=== PATIENT | female | born 1965 | race Caucasian/White ===

== ENCOUNTER 2023-03-31 12:00 | Emergency (ER) | payer MEDICARE, BC ==
[2023-03-31] MEDS ORDERED: Aspirin 81 MG Tab.Chew PO ONE (12:11)
[2023-03-31] MEDS ORDERED: Nitroglycerin 0.4 MG Tab.SL SL PRN (12:11)
[2023-03-31] MEDS ORDERED: Morphine 4 MG/ML Syringe IVPUSH ONE ×2 (12:11→13:16)
[2023-03-31 12:27] LABS: BASOPHILS ABSOLUTE AUTO 0.04 K/uL (0.00-0.20); BASOPHILS PERCENT AUTO 0.6 % (0.0-1.0); EOSINOPHILS ABSOLUTE AUTO 0.08 K/uL (0.00-0.45); EOSINOPHILS PERCENT AUTO 1.3 % (0.0-6.0); HEMATOCRIT 46.6 % (37.0-47.0); HEMOGLOBIN 15.7 g/dL (12.0-16.0); IMMATURE GRAN ABSOLUTE AUTO 0.02 K/uL (0.00-0.05); IMMATURE GRAN PERCENT AUTO 0.3 % (0.0-0.4); LYMPHOCYTES ABSOLUTE AUTO 2.01 K/uL (1.00-4.80); LYMPHOCYTES PERCENT AUTO 31.5 % (24.0-44.0); MEAN CORPUSCULAR HEMOGLOBIN 31.2 pg (28.0-32.0); MEAN CORPUSCULAR HGB CONC 33.7 g/dL (32.0-36.0); MEAN CORPUSCULAR VOLUME 92.5 fL (83.0-99.0); MEAN PLATELET VOLUME 11.1 fL (9.4-12.3); MONOCYTES ABSOLUTE AUTO 0.51 K/uL (0.00-0.80); NEUTROPHILS ABSOLUTE AUTO 3.73 K/uL (1.80-7.70); NEUTROPHILS PERCENT AUTO 58.3 % (41.0-71.0); PLATELET COUNT,PLT 209 K/uL (150-400); RED BLOOD CELL COUNT 5.04 M/uL (4.10-5.30); WHITE BLOOD CELL COUNT,WBC 6.39 K/uL (3.9-11.3)
[2023-03-31 12:38] LABS: INR 0.96 (0.86-1.11)
[2023-03-31 12:56] LABS: BILIRUBIN TOTAL 0.7 mg/dL (0.2-1.0); CALCIUM 9.2 mg/dL (8.5-10.1); CARBON DIOXIDE,CO2 23.7 mmol/L (21.0-32.0); CREATININE 0.8 mg/dL (0.6-1.0); EST CRCL DRUG DOSING (CG) 72.63 mL/min; MAGNESIUM 2.1 mg/dL (1.8-2.4); POTASSIUM,K 4.3 mmol/L (3.5-5.1); PROTEIN TOTAL,TP 8.2 g/dL (6.4-8.2)
[2023-03-31] MEDS ORDERED: Ondansetron 4 MG/2 ML SDV IVPUSH ONE (13:07)
== END 2023-03-31 13:58 | disposition home or self-care (01) ==
LOC: MW.ED 12:00
DX: R07.9 Chest pain, unspecified (principal); Z88.0 Allergy status to penicillin
CPT/HCPCS: 36415; 71045; 80053; 83735; 83880; 84484; 85025; 85610; 85730; 93005; 96374; 96375; 96376; 99285; A9270; J2270; J2405; 93010; 99284

== ENCOUNTER 2023-05-25 09:59 | Emergency (ER) | payer MEDICARE, BC ==
[2023-05-25] MEDS ORDERED: Aspirin 81 MG Tab.Chew PO ONE (10:08)
[2023-05-25 10:21] LABS: BASOPHILS ABSOLUTE AUTO 0.01 K/uL (0.00-0.20); BASOPHILS PERCENT AUTO 0.1 % (0.0-1.0); IMMATURE GRAN ABSOLUTE AUTO 0.06 K/uL (0.00-0.05); IMMATURE GRAN PERCENT AUTO 0.7 % (0.0-0.4); LYMPHOCYTES ABSOLUTE AUTO 1.08 K/uL (1.00-4.80); LYMPHOCYTES PERCENT AUTO 12.3 % (24.0-44.0); MEAN CORPUSCULAR HEMOGLOBIN 30.9 pg (28.0-32.0); MEAN CORPUSCULAR HGB CONC 34.1 g/dL (32.0-36.0); MEAN CORPUSCULAR VOLUME 90.7 fL (83.0-99.0); MEAN PLATELET VOLUME 10.6 fL (9.4-12.3); MONOCYTES ABSOLUTE AUTO 0.15 K/uL (0.00-0.80); MONOCYTES PERCENT AUTO 1.7 % (0.0-8.0); NEUTROPHILS ABSOLUTE AUTO 7.48 K/uL (1.80-7.70); NEUTROPHILS PERCENT AUTO 85.2 % (41.0-71.0); PLATELET COUNT,PLT 251 K/uL (150-400); RED BLOOD CELL COUNT 4.85 M/uL (4.10-5.30); WHITE BLOOD CELL COUNT,WBC 8.78 K/uL (3.9-11.3)
[2023-05-25] MEDS ORDERED: Morphine 4 MG/ML Syringe IVPUSH ONE (10:22)
[2023-05-25] MEDS ORDERED: Ondansetron 4 MG/2 ML SDV IVPUSH ONE (10:23)
[2023-05-25] MEDS ORDERED: LORazepam 1 MG Tab PO ONE (10:26)
[2023-05-25 10:27] LABS: INR 0.96 (0.86-1.11); PTT,PARTIAL THROMBOPLSTIN TIME 27.1 SEC (23.9-30.7)
[2023-05-25 10:43] LABS: A/G RATIO 0.9 (0.9-1.6); ALBUMIN 3.7 g/dL (3.4-5.0); BILIRUBIN TOTAL 0.3 mg/dL (0.2-1.0); CALCIUM 9.7 mg/dL (8.5-10.1); CARBON DIOXIDE,CO2 22.3 mmol/L (21.0-32.0); EST CRCL DRUG DOSING (CG) 58.11 mL/min; MAGNESIUM 1.8 mg/dL (1.8-2.4); POTASSIUM,K 3.9 mmol/L (3.5-5.1); PROTEIN TOTAL,TP 7.9 g/dL (6.4-8.2)
== END 2023-05-25 11:48 | disposition home or self-care (01) ==
LOC: MW.ED 09:59
DX: R07.9 Chest pain, unspecified (principal); I10 Essential (primary) hypertension; I25.810 Atherosclerosis of coronary artery bypass graft(s) without angina pectoris; Z86.73 Personal history of transient ischemic attack (TIA), and cerebral infarction without residual deficits; Z95.5 Presence of coronary angioplasty implant and graft; Z79.82 Long term (current) use of aspirin; Z79.899 Other long term (current) drug therapy; Z88.0 Allergy status to penicillin; Z91.041 Radiographic dye allergy status
CPT/HCPCS: 36415; 70450; 71045; 80053; 83735; 84484; 85025; 85610; 85730; 93005; 96374; 96375; 99285; A9270; J2270; J2405; 93010; 99284

== ENCOUNTER 2024-01-09 22:09 | Observation (INO) | payer MEDICARE, OTHER ==
[2024-01-09 22:34] LABS: BASOPHILS ABSOLUTE AUTO 0.04 K/uL (0.00-0.20); BASOPHILS PERCENT AUTO 0.6 % (0.0-1.0); EOSINOPHILS ABSOLUTE AUTO 0.14 K/uL (0.00-0.45); EOSINOPHILS PERCENT AUTO 1.9 % (0.0-6.0); HEMATOCRIT 42.6 % (37.0-47.0); HEMOGLOBIN 14.2 g/dL (12.0-16.0); IMMATURE GRAN ABSOLUTE AUTO 0.03 K/uL (0.00-0.05); IMMATURE GRAN PERCENT AUTO 0.4 % (0.0-0.4); LYMPHOCYTES ABSOLUTE AUTO 3.67 K/uL (1.00-4.80); LYMPHOCYTES PERCENT AUTO 50.8 % (24.0-44.0); MEAN CORPUSCULAR HGB CONC 33.3 g/dL (32.0-36.0); MEAN PLATELET VOLUME 10.4 fL (9.4-12.3); MONOCYTES ABSOLUTE AUTO 0.55 K/uL (0.00-0.80); MONOCYTES PERCENT AUTO 7.6 % (0.0-8.0); NEUTROPHILS PERCENT AUTO 38.7 % (41.0-71.0); PLATELET COUNT,PLT 210 K/uL (150-400); RED BLOOD CELL COUNT 4.58 M/uL (4.10-5.30); WHITE BLOOD CELL COUNT,WBC 7.23 K/uL (3.9-11.3)
[2024-01-09 22:58] LABS: A/G RATIO 1.2 (0.9-1.6); ALBUMIN 3.8 g/dL (3.4-5.0); BILIRUBIN TOTAL 0.4 mg/dL (0.2-1.0); CARBON DIOXIDE,CO2 25.4 mmol/L (21.0-32.0); EST CRCL DRUG DOSING (CG) 58.11 mL/min; MAGNESIUM 1.7 mg/dL (1.8-2.4); POTASSIUM,K 3.9 mmol/L (3.5-5.1); PROTEIN TOTAL,TP 7.1 g/dL (6.4-8.2)
[2024-01-09] MEDS: Sodium Chloride 0.9% 2.5 ML Syringe FLUSH PRN (23:14)
[2024-01-09] MEDS: Ondansetron 4 MG/2 ML SDV IVPUSH ONE (23:14)
[2024-01-09] MEDS: Sodium Chloride 0.9% 10 ML Syringe FLUSH PRN (23:14)
[2024-01-10] MEDS: Morphine 4 MG/ML Syringe IVPUSH ONE (00:05)
[2024-01-10] MEDS: Ondansetron 4 MG/2 ML SDV IVPUSH ONE (00:18)
[2024-01-10] MEDS: Ondansetron 4 MG/2 ML SDV IVPUSH STA (01:39)
[2024-01-10] MEDS: Morphine 2 MG/ML SYRINGE IVPUSH PRN (03:55)
[2024-01-10] MEDS: traZODone 50 MG Tab PO PRN (04:11)
[2024-01-10 05:55] LABS: BASOPHILS ABSOLUTE AUTO 0.04 K/uL (0.00-0.20); BASOPHILS PERCENT AUTO 0.7 % (0.0-1.0); EOSINOPHILS ABSOLUTE AUTO 0.11 K/uL (0.00-0.45); EOSINOPHILS PERCENT AUTO 1.9 % (0.0-6.0); HEMATOCRIT 39.6 % (37.0-47.0); IMMATURE GRAN ABSOLUTE AUTO 0.04 K/uL (0.00-0.05); IMMATURE GRAN PERCENT AUTO 0.7 % (0.0-0.4); LYMPHOCYTES ABSOLUTE AUTO 2.83 K/uL (1.00-4.80); LYMPHOCYTES PERCENT AUTO 49.7 % (24.0-44.0); MEAN CORPUSCULAR HEMOGLOBIN 30.7 pg (28.0-32.0); MEAN CORPUSCULAR HGB CONC 32.8 g/dL (32.0-36.0); MEAN CORPUSCULAR VOLUME 93.6 fL (83.0-99.0); MEAN PLATELET VOLUME 10.4 fL (9.4-12.3); MONOCYTES ABSOLUTE AUTO 0.45 K/uL (0.00-0.80); MONOCYTES PERCENT AUTO 7.9 % (0.0-8.0); NEUTROPHILS ABSOLUTE AUTO 2.22 K/uL (1.80-7.70); NEUTROPHILS PERCENT AUTO 39.1 % (41.0-71.0); PLATELET COUNT,PLT 178 K/uL (150-400); RED BLOOD CELL COUNT 4.23 M/uL (4.10-5.30); WHITE BLOOD CELL COUNT,WBC 5.69 K/uL (3.9-11.3)
[2024-01-10 06:21] LABS: CALCIUM 8.7 mg/dL (8.5-10.1); CARBON DIOXIDE,CO2 25.1 mmol/L (21.0-32.0); EST CRCL DRUG DOSING (CG) 58.11 mL/min; POTASSIUM,K 3.9 mmol/L (3.5-5.1)
[2024-01-10] MEDS ORDERED: traMADol 50 MG Tab PO PRN (07:59)
[2024-01-10] MEDS ORDERED: tiZANidine 4 MG Tab PO PRN (07:59)
[2024-01-10] MEDS ORDERED: traZODone 50 MG Tab PO PRN (07:59)
[2024-01-10] MEDS ORDERED: Albuterol 0.083% 2.5 MG/3 ML Neb Soln NEB PRN (08:02)
[2024-01-10] MEDS ORDERED: Sodium Chloride 0.9% 10 ML Syringe FLUSH PRN (08:02)
[2024-01-10] MEDS ORDERED: Docusate Sodium 100 MG Cap PO PRN (08:02)
[2024-01-10] MEDS ORDERED: Sodium Chloride 0.9% 2.5 ML Syringe FLUSH PRN (08:02)
[2024-01-10] MEDS ORDERED: Acetaminophen 325 MG Tab PO PRN (08:02)
[2024-01-10] MEDS: Isosorbide Mononitrate 30 MG Tab.ER PO SCH (08:49)
[2024-01-10] MEDS: Aspirin 81 MG Tab.Chew PO SCH (08:50)
[2024-01-10] MEDS: Ondansetron 4 MG/2 ML SDV IVPUSH PRN (08:50)
[2024-01-10] MEDS: Metoprolol Succinate 100 MG Tab.ER PO SCH (08:50)
[2024-01-10] MEDS: Pantoprazole 40 MG Tab.CR PO SCH (09:20)
[2024-01-10] MEDS: Ticagrelor 90 MG Tab PO SCH (10:39)
[2024-01-10] MEDS: LORazepam 1 MG Tab PO PRN (12:20)
[2024-01-10] MEDS: Gadobenate Dimeglumine 529 MG/ML 20 ML SDV IVPUSH STA (13:01)
[2024-01-10] MEDS ORDERED: atorvaSTATin 40 MG Tab PO SCH (21:00)
[2024-01-10] MEDS ORDERED: Metoprolol Succinate 100 MG Tab.ER PO SCH (21:00)
== END 2024-01-10 15:10 | disposition home or self-care (01) ==
LOC: MW.ED 22:09 → MW.MS 01-10 01:12
PROVIDERS: ADMIT Internal Medicine; ATTEND Internal Medicine
DX: I25.118 Atherosclerotic heart disease of native coronary artery with other forms of angina pectoris (principal); I10 Essential (primary) hypertension; E78.5 Hyperlipidemia, unspecified; I73.9 Peripheral vascular disease, unspecified; Z95.1 Presence of aortocoronary bypass graft; Z79.82 Long term (current) use of aspirin; Z79.899 Other long term (current) drug therapy; Z88.0 Allergy status to penicillin; Z91.041 Radiographic dye allergy status
CPT/HCPCS: 36415; 70553; 71045; 80048; 80053; 83735; 84484; 85025; 85379; 93005; 93306; 96374; 96375; 96376; 99285; A9270; A9577; J2270; J2405; J3490; 93010; 99284; G0378